=== PATIENT | male | born 1980 | race Hispanic/Latino ===

== ENCOUNTER 2024-04-26 08:15 | Emergency (ER) | payer SELFPAY ==
[~2024-04-26] VITALS: Ht 157.5 cm; Wt 81.6 kg
[2024-04-26 08:48] LABS: BASOPHILS # (AUTO) 0.02 K/uL (0.00-0.20); BASOPHILS % (AUTO) 0.4 % (0.0-5.0); EOSINOPHILS # (AUTO) 0.02 K/uL (0.00-0.70); EOSINOPHILS % (AUTO) 0.4 % (0.0-8.0); HEMATOCRIT 43.7 % (42-54); IMMATURE GRANULOCYTE ABSOLUTE 0.02 K/uL (0-1); LYMPHOCYTES # (AUTO) 1.7 K/uL (1.0-4.8); LYMPHOCYTES % (AUTO) 29.7 % (21.0-51.0); MEAN CORPUSCULAR HEMOGLOBIN 30.9 pg (27.0-33.0); MEAN CORPUSCULAR HGB CONC 35.2 g/dL (32.0-36.0); MEAN CORPUSCULAR VOLUME 87.6 fL (79-99); MONOCYTES # (AUTO) 0.4 K/uL (0.1-1.0); MONOCYTES % (AUTO) 6.9 % (3.0-13.0); NEUTROPHILS # (AUTO) 3.5 K/uL (1.8-7.7); NEUTROPHILS % (AUTO) 62.2 % (40.0-77.0); PLATELET COUNT (AUTO) 208 K/uL (130-400); RED BLOOD CELL COUNT(AUTO) 4.99 MIL/uL (4.50-6.20); RED CELL DISTRIBUTION WIDTH 12.4 % (11.0-15.5); WHITE BLOOD COUNT (AUTO) 5.7 K/uL (4.8-10.8)
[2024-04-26 08:52] LABS: APPEARANCE,URINE CLEAR (CLEAR); BILIRUBIN,URINE NEGATIVE (NEGATIVE); COLOR,URINE LIGHT-YELLOW (YELLOW); GLUCOSE, URINE (UA) NEGATIVE (NEGATIVE); KETONES,URINE 5 mg/dL (NEGATIVE); LEUKOCYTE ESTERASE ,URINE NEGATIVE Leu/uL (NEGATIVE); NITRATE,URINE NEGATIVE (NEGATIVE); OCCULT BLOOD,URINE NEGATIVE (NEGATIVE); PH,URINE 6.5 (5.0-8.0); PROTEIN,URINE NEGATIVE (NEGATIVE); UROBILINOGEN,URINE 0.2 mg/dL (0.2-1.0)
[2024-04-26 08:53] LABS: ADD UA MICROSCOPIC YES
[2024-04-26 08:57] LABS: POTASSIUM 3.5 mmol/L (3.5-5.1)
[2024-04-26 08:59] LABS: MUCUS,URINE RARE LPF (None Seen); RBC,URINE 0-1 /HPF (0-1); SQUAMOUS EPITHELIAL CELL,UR RARE /HPF (0-2); WBC,URINE 0-1 /HPF (0-1)
[2024-04-26] MEDS: HYOSCYAMINE SULFATE 0.125 MG TAB.SUBL SL ONE (09:02)
[2024-04-26] MEDS: FAMOTIDINE 20MG VIAL IV ONE (09:02)
[2024-04-26] MEDS: ONDANSETRON 4MG INJ IVP ONE (09:02)
[2024-04-26] MEDS: 0.9%NACL 1000ML 1,000 ML IV ONE (09:07)
[2024-04-26 09:11] LABS: ALBUMIN 4.4 g/dL (3.5-5.0); BILIRUBIN,DIRECT 0.2 mg/dL (0.0-0.3); BILIRUBIN,TOTAL 0.8 mg/dL (0.2-1.0); TOTAL PROTEIN, SERUM 8.5 g/dL (6.0-8.3)
[2024-04-26] MEDS ORDERED: IOHEXOL 350 MG/ML 100ML INFUS..BTL IV ONE (11:58)
[2024-04-26] MEDS ORDERED: FAMO-136 PO (13:05)
[2024-04-26] MEDS ORDERED: HYOS-27 SL (13:05)
[2024-04-26] MEDS ORDERED: SIME180C70 PO (13:05)
[2024-04-26] MEDS ORDERED: ONDA-243 PO (13:05)
[2024-04-26 13:39] VITALS: BP 136/86; PULSE 64; RESP 16; O2SAT 98
== END 2024-04-26 13:45 | disposition home or self-care (01) ==
LOC: EDH 08:15
DX: R10.13 Epigastric pain (principal)
CPT/HCPCS: 99285; 74177; 96374; 96361; 96375; 80076; 80048; 83690; 85025; 81001; 36415; J3490; J7030; J2405; Q9967